=== PATIENT | male | born 1975 | race Caucasian/White ===

== ENCOUNTER 2017-02-25 13:59 | Emergency (ER) | payer OTHER ==
[~2017-02-25] VITALS: Ht 182.9 cm; Wt 89.4 kg
[2017-02-25 14:37] LABS: URINE BILIRUBIN NEGATIVE (Negative); URINE BLOOD 3+ (Negative); URINE GLUCOSE-RANDOM* NEGATIVE (Negative); URINE KETONES NEGATIVE (Negative); URINE NITRITE POSITIVE (Negative); URINE PROTEIN (DIPSTICK) 2+ (Negative); URINE SPECIFIC GRAVITY <= 1.005 (1.003-1.035); URINE UROBILINOGEN 0.2 E.U./dl (0.2-1.0)
[2017-02-25 14:38] LABS: URINE COLOR DARK YELLOW
[2017-02-25 14:43] LABS: BACTERIA >30 Many /HPF (None Seen); CASTS None Seen /LPF (None Seen); CRYSTALS None Seen /LPF (None Seen); SQUAMOUS None Seen /LPF (0-3); URINE RBC 3-10 Few /HPF (0-2); URINE WBC >25 Many /HPF (0-5)
[2017-02-25 15:30] LABS: HEMOGLOBIN 17.6 gm/dL (14.0-18.0); MCH 30.8 pg (26.0-34.0); MCHC 33.9 g/dL (28.0-37.0); PLATELET COUNT 228 thou/uL (150-400); RBC 5.72 mil/uL (4.50-6.00); RDW 16.6 % (10.5-14.5); WBC 13.2 thou/uL (4.0-11.0)
[2017-02-25 15:32] LABS: MANUAL DIFF YES
[2017-02-25 15:37] LABS: CALCIUM 9.1 mg/dL (8.5-10.1); CREATININE 1.4 mg/dL (0.7-1.3); POTASSIUM 4.3 mmol/L (3.5-5.1)
[2017-02-25 15:56] LABS: ABSOLUTE NEUTROPHILS 11.7 thou/uL (1.4-8.2); ATYPICAL LYMPHS 2 %; TOTAL CELL COUNT 100
[2017-02-25] MEDS ORDERED: KEFLEX500 MG PO (16:17)
[2017-02-25] MEDS ORDERED: NORCO 5-325 TA1 EACH PO (16:17)
[2017-02-25 17:11] VITALS: BP 142/90
== END 2017-02-25 17:13 | disposition home or self-care (01) ==
LOC: ER 13:59
PROVIDERS: Emergency Medicine
DX: N12 Tubulo-interstitial nephritis, not specified as acute or chronic (principal); D72.829 Elevated white blood cell count, unspecified; Z90.49 Acquired absence of other specified parts of digestive tract; F10.99 Alcohol use, unspecified with unspecified alcohol-induced disorder

== ENCOUNTER 2017-04-22 19:47 | Emergency (ER) | payer OTHER ==
[~2017-04-22] VITALS: Ht 182.9 cm; Wt 81.7 kg
[~2017-04-22 19:47] MED LIST: IBUPROFEN 400400 M2 PO; KEFLEX500 MG PO; LEVAQUIN 500 M500 M2 PO; NORCO 5-325 TA1 EACH PO; ONDANSETRON HCL4 M2 PO; OXYCODONE HCL 55 MG PO; PAIN & FEVER325 MG PO
[2017-04-22 20:16] LABS: CALCIUM 8.6 mg/dL (8.5-10.1); CREATININE 1.2 mg/dL (0.7-1.3); POTASSIUM 3.9 mmol/L (3.5-5.1)
[2017-04-22 20:17] LABS: ABSOLUTE NEUTROPHILS 3.1 thou/uL (1.4-8.2); BASOPHILS 1.2 % (0.0-2.0); HEMATOCRIT 47.1 % (42.0-52.0); HEMOGLOBIN 16.4 gm/dL (14.0-18.0); LYMPHOCYTES 39.9 % (24.0-44.0); MCH 32.4 pg (26.0-34.0); MCHC 34.8 g/dL (28.0-37.0); MONOCYTES 11.8 % (1.0-8.0); PLATELET COUNT 254 thou/uL (150-400); POLYS 45.1 % (36.0-66.0); RBC 5.06 mil/uL (4.50-6.00); WBC 6.9 thou/uL (4.0-11.0)
[2017-04-22 20:21] LABS: URINE BILIRUBIN NEGATIVE (Negative); URINE BLOOD NEGATIVE (Negative); URINE COLOR YELLOW; URINE GLUCOSE-RANDOM* NEGATIVE (Negative); URINE KETONES NEGATIVE (Negative); URINE LEUKOCYTES-REFLEX TRACE (Negative); URINE PROTEIN (DIPSTICK) NEGATIVE (Negative); URINE SPECIFIC GRAVITY <= 1.005 (1.003-1.035); URINE UROBILINOGEN 0.2 E.U./dl (0.2-1.0)
[2017-04-22 20:22] LABS: ALBUMIN 3.8 g/dL (3.4-5.0); TOTAL BILIRUBIN 0.3 mg/dL (<0.1-1.0); TOTAL PROTEIN 7.4 g/dL (6.4-8.2)
[2017-04-22 20:24] LABS: MANUAL DIFF NO
[2017-04-22 20:26] LABS: SQUAMOUS None Seen /LPF (0-3); URINE RBC None Seen /HPF (0-2); URINE WBC-REFLEX 0-5 Rare /HPF (0-5)
[2017-04-22 20:27] LABS: CRYSTALS None Seen /LPF (None Seen)
[2017-04-22] MEDS ORDERED: CEFDINIR300 MG PO (22:29)
== END 2017-04-22 23:04 | disposition home or self-care (01) ==
LOC: ER 19:47
PROVIDERS: Physician Assistant
DX: N39.0 Urinary tract infection, site not specified (principal); F10.99 Alcohol use, unspecified with unspecified alcohol-induced disorder; Z90.49 Acquired absence of other specified parts of digestive tract

== ENCOUNTER 2017-10-30 12:13 | Emergency (ER) | payer OTHER ==
[~2017-10-30] VITALS: Ht 182.9 cm; Wt 81.7 kg
[~2017-10-30 12:13] MED LIST changes: +CEFDINIR300 MG PO
[2017-10-30 12:27] LABS: URINE BILIRUBIN NEGATIVE (Negative); URINE BLOOD NEGATIVE (Negative); URINE CLARITY CLEAR; URINE COLOR YELLOW; URINE GLUCOSE-RANDOM* NEGATIVE (Negative); URINE KETONES NEGATIVE (Negative); URINE NITRITE-REFLEX NEGATIVE (Negative); URINE PROTEIN (DIPSTICK) NEGATIVE (Negative); URINE SPECIFIC GRAVITY <= 1.005 (1.005-1.035); URINE UROBILINOGEN 0.2 E.U./dl (0.2-1.0)
[2017-10-30 12:30] LABS: URINE LEUKOCYTES-REFLEX TRACE (Negative)
[2017-10-30 14:01] LABS: BASOPHILS 1.2 % (0.0-2.0); EOSINOPHILS 0.6 % (0.0-3.0); HEMATOCRIT 50.9 % (42.0-52.0); LYMPHOCYTES 23.4 % (24.0-44.0); MCH 34.6 pg (26.0-34.0); MCHC 35.3 g/dL (28.0-37.0); MCV 97.9 fL (80.0-100.0); MONOCYTES 8.4 % (1.0-8.0); PLATELET COUNT 277 thou/uL (150-400); POLYS 66.4 % (36.0-66.0); RDW 13.1 % (10.5-14.5); WBC 7.5 thou/uL (4.0-11.0)
[2017-10-30 14:10] LABS: CALCIUM 8.6 mg/dL (8.5-10.1); POTASSIUM 3.9 mmol/L (3.5-5.1)
[2017-10-30 14:15] LABS: ALBUMIN 3.5 g/dL (3.4-5.0); TOTAL BILIRUBIN 0.6 mg/dL (<0.1-1.0); TOTAL PROTEIN 7.2 g/dL (6.4-8.2)
[2017-10-30] MEDS ORDERED: NORFLEX100 MG PO (14:32)
[2017-10-30] MEDS ORDERED: NAPROSYN500 MG PO (14:32)
[2017-10-30] MEDS ORDERED: TRAMADOL 50 MG50 MG PO (14:32)
[2017-10-30 15:32] VITALS: BP 134/98
== END 2017-10-30 15:33 | disposition home or self-care (01) ==
LOC: ER 12:13
PROVIDERS: Emergency Medicine
DX: M51.36 Other intervertebral disc degeneration, lumbar region (principal); G89.29 Other chronic pain; Z87.01 Personal history of pneumonia (recurrent); Z90.49 Acquired absence of other specified parts of digestive tract